=== PATIENT | male | born 1995 | race Caucasian/White ===

== ENCOUNTER 2023-02-08 18:39 | Emergency (ER) | payer OTHER, SELFPAY ==
[2023-02-08 18:44] VITALS: BP 131/72; PULSE 84; RESP 16; TEMP 36.4; O2SAT 100; BMI 24.3
--- NOTE | 2023-02-08 18:53 | DI.RAD.S_ITS ---
PROCEDURE: XR KNEE RT 3V INDICATIONS: injury TECHNIQUE: 3 views of the knee were acquired. COMPARISON: None. FINDINGS: Bones: No fractures or dislocations. No suspicious bony lesions. Soft tissues: No joint effusion. No suspicious soft tissue calcifications. Mild prepatellar soft tissue swelling. IMPRESSION: No osseous trauma found. Mild prepatellar soft tissue swelling. Dictated by: Anthony Vences M.D. on 02/08/2023 at 20:02 Approved by: Anthony Vences M.D. on 02/08/2023 at 20:03
[2023-02-08] MEDS: LIDOCAINE/PRILOCAINE 5 GM TOP (20:04)
[2023-02-08] MEDS: TET,DIPH,PERTUSS(ACELL),VAC/PF 0.5 ML SYRINGE IM (20:04)
[2023-02-08] MEDS: ACETAMINOPHEN 325 MG TABLET PO (20:05)
[2023-02-08] MEDS: IBUPROFEN 400 MG TABLET PO (20:05)
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
[2023-02-08 22:15] VITALS: BP 128/64; PULSE 70; RESP 16; O2SAT 100
== END 2023-02-08 22:16 | disposition home or self-care (01) ==
PROVIDERS: Emergency Provider Emergency Medicine
DX: S01.81XA Laceration without foreign body of other part of head, initial encounter (principal); S80.01XA Contusion of right knee, initial encounter; V86.56XA Driver of dirt bike or motor/cross bike injured in nontraffic accident, initial encounter; Z23 Encounter for immunization
CPT/HCPCS: 12002; 73562; 90471; 99284; 90715